=== PATIENT | male | born 1975 | race Caucasian/White ===

== ENCOUNTER 2023-10-05 22:39 | Observation (INO) | payer OTHER, SELFPAY ==
--- NOTE | ~2023-10-05 | XR_ITS ---
EXAMINATION: XR chest 1V portable DATE: 10/05/2023 23:59 INDICATION: Cough. TECHNIQUE: A single frontal view of the chest was obtained. COMPARISON: None. FINDINGS: There are airspace and interstitial opacities in the lower lung zones. No pleural effusion or pneumothorax. The heart size is normal. IMPRESSION: 1. Airspace and interstitial opacities in the lower lung zones, consistent with atelectasis/scarring versus pneumonia. Reviewed, dictated and finalized at location E. AL OFFICER
[2023-10-05 22:43] VITALS: BP 152/99; PULSE 109; RESP 18; TEMP 36.5; O2SAT 99
[2023-10-05 23:25] LABS: Basophils Absolute Auto 0.1 K/mm3 (0.0-0.1); Basophils Percent Auto 0.4 % (0.2-1.2); Eosinophils Absolute Auto 0.4 K/mm3 (0-0.3); Eosinophils Percent Auto 2.2 % (0-4.4); Hematocrit 43.7 % (42.0-52.0); Hemoglobin 16.1 g/dL (14.0-18.0); Immature Granulocyte Absolute 0.05 K/mm3 (0.00-0.031); Immature Granulocyte Percent A 0.3 % (0-0.5); Lymphocytes Absolute Auto 4.14 K/mm3 (0.9-3.2); Lymphocytes Percent Auto 25.8 % (18.3-44.2); Mean Corpuscular HGB Conc 36.8 g/dl (32-36); Mean Corpuscular Hemoglobin 32.3 pg (26-34); Mean Corpuscular Volume 87.8 fl (80-100); Mean Platelet Volume 11.2 fl (7.4-10.4); Monocytes Absolute Auto 1.2 K/mm3 (0.1-0.6); Monocytes Percent Auto 7.5 % (2.6-8.5); Neutrophils Absolute Auto 10.3 K/mm3 (1.3-6.7); Neutrophils Percent Auto 63.8 % (45.5-73.1); Platelet Count Result 243 k/mm3 (150-375); Red Blood Count 4.98 M/mm3 (4.6-6.20); Red Cell Distribution Width 12.4 % (11.5-14.5); White Blood Count 16.1 K/mm3 (4.5-10.0)
[2023-10-05 23:27] LABS: Glucose Point of Care > 500 mg/dl (65-105)
[2023-10-05 23:34] VITALS: PULSE 95; RESP 24; O2SAT 97
[2023-10-05 23:35] VITALS: BP 148/83; PULSE 98; RESP 22; O2SAT 97
--- NOTE | 2023-10-05 23:37 | ECG_ITS ---
Measurements Intervals [place] Rate: 93 P: 62 NJ: 175 QRS: 64 QRSD: 98 T: 47 QT: 352 QTc: 438 Interpretive Statements SINUS RHYTHM BASELINE ARTIFACT- I, V2, V4 NORMAL ECG NO PREVIOUS ECG AVAILABLE FOR COMPARISON Electronically Signed On 10-06-2023 7:02:12 SUPERVISORY FORESTER by Aaron Holland D.O.
[2023-10-05 23:38] LABS: Beta-Hydroxybutyrate/Acetoacetate 0.12 mmol/L (0.02-0.27)
[2023-10-05 23:45] VITALS: PULSE 96; RESP 20
[2023-10-05 23:45] LABS: Alanine Aminotransferase 34 U/L (6-50); Albumin Level 4.2 g/dL (3.5-5.1); Alkaline Phosphatase 201 U/L (38-126); Anion Gap 14 mmol/L (8-16); Aspartate Amino Transferase 30 U/L (17-59); Bilirubin,Total 0.7 mg/dL (0.2-1.3); Blood Urea Nitrogen 18 mg/dL (9-20); Carbon Dioxide 22 mmol/L (22-30); Chloride 94 mmol/L (98-107); Estimated CRCL calculation 91 ml/min; Estimated Glomerular Filt Rate > 60; Glucose 600 mg/dL (65-110); Magnesium 1.9 mg/dL (1.6-2.3); Phosphorus 2.8 mg/dL (2.5-4.5); Potassium 3.6 mmol/L (3.4-5.0); Sodium 130 mmol/L (137-145)
[2023-10-05] MEDS: SODIUM CHLORIDE 0.9% IV 1,000 ML 999 ML IV CONT ×2 (23:52)
[2023-10-06] VITALS (13 sets, daily range): BP systolic 141–158; BP diastolic 78–99; PULSE 77–99; RESP 14–23; TEMP 36.1–36.9; O2SAT 97–99; BMI 29.7
[2023-10-06 00:01] LABS: Appearance Urine Clear (Clear); Bilirubin Urine Negative (Negative); Blood Urine Negative (Negative); Color Urine Yellow (Yellow); Glucose Urine UA 3+ mg/dL (Negative); Ketones Urine Negative (Negative); Leukocyte Esterase Ur Negative LEU/UL (Negative); Nitrate Urine Negative (Negative); Protein Urine Negative (Negative); Specific Grav Ur 1.031 (1.001-1.035)
[2023-10-06 00:08] LABS: Lipase 352 U/L (23-300)
[2023-10-06 00:09] LABS: Lactic Acid Reflex 1.8 mmol/L (0.7-2.0)
[2023-10-06 00:11] LABS: Add Urine Microscopic? NO
[2023-10-06 00:21] LABS: Fractional Inspired Oxygen 21 %; HCO3 VBG 22.7 mEq/l (24.0-30.0); PO2 VBG 88.8 mmHg (35.0-45.0)
[2023-10-06 00:26] LABS: pH VBG 7.574 (7.300-7.400)
[2023-10-06 00:27] LABS: PCO2 VBG 25.1 mmHg (42.0-48.0)
[2023-10-06 00:29] LABS: Device ROOM AIR
[2023-10-06] MEDS: SODIUM CHLORIDE 0.9% IV 1,000 ML 999 ML IV CONT (00:48)
--- NOTE | 2023-10-06 00:48 | ED.GENADULT ---
HPI - General Adult General Chief complaint: Recheck/Abnormal Lab/Rx Stated complaint: pretty sure im in DKA Time Seen by Provider: 10/05/23 23:35 History of Present Illness HPI narrative: Patient 48-year-old gentleman who presents emergency department with chief complaint of hyperglycemia. Patient reports he has history of type 2 diabetes and currently is just on metformin as he has had issues with insurance and medications. The patient states that he has noticed that he has had increased urination and increased thirst patient states he has had some episodes of blurry vision and reports that he had outpatient labs that showed him to have a hemoglobin A1c of 12 and a blood sugar of 600. Patient reports he is concerned that he may be going into DKA Related Data Allergies Allergy/AdvReac Type Severity Reaction Status Date / Time No Known Allergies Allergy Verified 10/05/23 22:40 Review of Systems Review of Systems: A 10 system review of systems was completed on the patient and is negative except for what is stated in the HPI. Nursing and ancillary documentation was reviewed. Exam Narrative: GENERAL: Well-appearing, well-nourished, and in no acute distress. HEAD: Normocephalic, atraumatic. EYES: PERRLA and EOMI. ENT: Nares clear, no rhinorrhea or epistaxis. Mucous membranes moist. NECK: Supple. CHEST: Clear to auscultation. No respiratory distress. HEART: Regular rate and rhythm. No murmur heard. Normal peripheral pulses. ABDOMEN: Soft, nontender, nondistended, normal active bowel sounds. EXTREMITIES: Normal range of motion. No edema. SKIN: Warm, dry, no rash. NEURO: No focal deficits. Alert and oriented x3. PSYCH: Normal mood and affect. Course Vital Signs Vital signs: Vital Signs Temperature 36.5 C 10/05/23 22:43 Pulse Rate 109 H 10/05/23 22:43 Respiratory Rate 18 10/05/23 22:43 Blood Pressure 152/99 H 10/05/23 22:43 Pulse Oximetry 99 10/05/23 22:43 Oxygen Delivery Room Air 10/05/23 22:43 Temperature 36.5 C 10/05/23 22:43 Pulse Rate 96 10/06/23 00:11 Respiratory Rate 23 H 10/06/23 00:11 Blood Pressure 148/83 H 10/05/23 23:35 Pulse Oximetry 97 10/06/23 00:11 Oxygen Delivery Room Air 10/05/23 22:43 Medical Decision Making [facility] Narrative Medical decision making narrative: Differential diagnosis includes HHS, hyperglycemia, noncompliance, Laboratory studies were obtained and the patient showed a white blood cell count of 16.1 hemoglobin 16.9 electrolytes showed a sodium 130 potassium 3.6 BUN was 18 creatinine 0.9 glucose was 600 lactic acid was 1.8 magnesium 1.9 phosphorus is 2.8 liver enzymes are within normal limits lipase was 352 beta-hydroxybutyrate was 0.12 urinalysis showed 3+ glucose but no ketones. Chest x-ray showed no focal infiltrate. Vital Signs Vital Signs: Vital Signs Temperature 36.5 C 10/05/23 22:43 Pulse Rate 109 H 10/05/23 22:43 Respiratory Rate 18 10/05/23 22:43 Blood Pressure 152/99 H 10/05/23 22:43 Pulse Oximetry 99 10/05/23 22:43 Oxygen Delivery Room Air 10/05/23 22:43 Temperature 36.5 C 10/05/23 22:43 Pulse Rate 96 10/06/23 00:11 Respiratory Rate 23 H 10/06/23 00:11 Blood Pressure 148/83 H 10/05/23 23:35 Pulse Oximetry 97 10/06/23 00:11 Oxygen Delivery Room Air 10/05/23 22:43 Lab Data 10/05/23 23:14 10/05/23 23:14 Labs: Lab Results 10/05/23 10/05/23 10/05/23 Range/Units 23:14 23:24 23:34 WBC 16.1 H (4.5-10.0) K/mm3 RBC 4.98 (4.6-6.20) M/mm3 Hgb 16.1 (14.0-18.0) g/dL Hct 43.7 (42.0-52.0) % MCV 87.8 (80-100) fl MCH 32.3 (26-34) pg MCHC 36.8 H (32-36) g/dl RDW 12.4 (11.5-14.5) % Plt Count 243 (150-375) k/mm3 MPV 11.2 H (7.4-10.4) fl Immature Gran % (Auto) 0.3 (0-0.5) % Neut % (Auto) 63.8 (45.5-73.1) % Lymph % (Auto) 25.8 (18.3-44.2) % [place] % (Auto) 7.5 (2.6-8.5) % Eos %
[2023-10-06 00:55] LABS: Glucose Point of Care 458 mg/dl (65-105)
[2023-10-06 01:03] LABS: Base Excess ABG -1.3 mEq/l (+/-2.0); Fractional Inspired Oxygen 21 %; HCO3 ABG 21.8 mEq/l (22.0-26.0); Oxygen Content ABG 17.9 %vol (16.0-22.0); Oxygen Saturation ABG 95.1 % (95.0-100.0); PCO2 ABG 32.3 mmHg (35.0-45.0); PO2 ABG 71.1 mmHg (80.0-100.0); PO2 FiO2 Ratio Arterial Blood 3.39 %; pH ABG 7.447 (7.350-7.450)
[2023-10-06 01:05] LABS: Oxyhemoglobin 84.9 % THb (90.0-100.0); Site Drawn LEFT RADIAL
[2023-10-06 01:06] LABS: Device ROOM AIR; Modified Allen's Test Pass
[2023-10-06] MEDS: INSULIN HUMAN REGULAR (*BKC) 100 UNITS/ML 9 UNITS IV PUSH (01:20)
[2023-10-06] MEDS: INSULIN GLARGINE (*BKC) 100 UNITS/ML 15 UNITS SUB-Q (03:15)
--- NOTE | 2023-10-06 03:34 | ADMGEN ---
This patient, Hima Mark, was admitted to 3 [facility] Surg Room 312-01. Patient/family oriented to hospital policies and general routines including ID bracelet, bed and alarms, visiting hours, pain management, procedures, bathroom and other care routines, personal items, smoking policy, room service/diet, and visiting hours. Information on how to activate the Rapid Response Team has been discussed. Patient/Family are encouraged to report perceived risks to care and to ask questions if they do not understand what they are told or what they should do.
[2023-10-06 03:43] LABS: Glucose Point of Care 237 mg/dl (65-105)
[2023-10-06] MEDS: SODIUM CHLORIDE 0.9% IV 1,000 ML 150 ML IV CONT ×2 (04:05→11:36)
[2023-10-06] MEDS: ACETAMINOPHEN 325 MG TABLET 650 MG PO ×2 (04:24→08:54)
--- NOTE | 2023-10-06 06:43 | PHAR ---
HOME MED NICOTINE POUCH 8MG USE PRN FOR SMOKING CESSATION VERIFIED
[2023-10-06 07:25] LABS: Glucose Point of Care 310 mg/dl (65-105)
[2023-10-06] MEDS: metFORMIN HCL 500 MG TABLET 1000 MG PO ×2 (08:53→17:24)
[2023-10-06] MEDS: INSULIN ASPART (*BKC) 100 UNITS/ML SUB-Q ×4 (08:55→22:02)
--- NOTE | 2023-10-06 10:47 | PM.IMHP ---
H&P: HPI History of Present Illness Date/Time: 10/06/23 10:47 Chief Complaint: High Glucose Narrative: This 48 year old male pt with significant PMH of DM2, HLD, HTN, Anxiety, arthritis and Nicotine abuse presented to the ER overnight with complaints of, I think I'm in DKA. Pt is a patient of Dr. Kranthi Gibbs in [facility] and he has always managed him for his DM and chronic conditions. Pt. currently states he has stopped taking his medications for HTN, and HLD because he is able to control them with diet and exercise and don't need them. 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 He then tells me also that he has had issues obtaining his medications at times due to insurance not paying. He says the Farxiga is covered, but he just hasn't picked it up as of yet. He admits to only taking his Metformin regularly for the past week and a half to two weeks because he just now needs it. His recent labs that were drawn on 09/27/23 and visible to me in [facility]'s system show that his A1C is 12.0. In addition his Triglycerides are 694, and all of this is leading me to have a high suspicion of medication and medication regimen non-compliance. He was ruled out for DKA in the ER and was admitted for further management and evaluation. His Anion Gap was 14, no lactic acidosis and a normal pH. He was given IVF and insulin and admitted. Currently he has no complaints of pain or any dizziness, but does endorse polyuria and polydipsia over the course of the past month. He states that yesterday his vision was blurry and that is what prompted him to present to the ER. This blurry vision is now resolved. Review of Systems Review of Systems: All systems reviewed & are unremarkable except as noted in HPI and below PMFSH Past Medical History Medical History (Updated 10/06/23 @ 11:29 by TETE Wilder) Anxiety Arthritis Diabetes mellitus Dyslipidemia Hypertension Nicotine abuse Noncompliance Family History Family History Father Diabetes mellitus High cholesterol Mother Diabetes mellitus High cholesterol Grandparent Diabetes mellitus Cerebrovascular accident High cholesterol Social History Social History Smoking packs per day: 2 Smoking cigarettes per day: 40.0 Years smoked: 33 Smoking pack-years: 66.00 Smoking status: Current every day smoker Tobacco type: cigarettes Alcohol intake: former Substance use: never Lack of Transportation: No Lack of Food: Never True Current Housing: I Have Housing Concerned About Future Housing: No Difficulty Paying Gas/Electric Bills: No Difficulty Paying for Meds: YES Currently Unemployed: No Education: Associate Degree Difficulty w/ Childcare or Family Care: No Spiritual care concerns: No Meds Home Medications and Allergies Home Medications Medication Instructions Recorded Confirmed Type dapagliflozin propanediol 10 mg 10 mg PO DAILY 10/06/23 10/06/23 History tablet (Farxiga) metformin 1,000 mg tablet 1,000 mg PO BID 10/06/23 10/06/23 History Allergies Allergy/AdvReac Type Severity Reaction Status Date / Time No Known Allergies Allergy Verified 10/06/23 03:35 Vital Signs Vital Signs - 24 hr 10/05/23 22:43 10/05/23 23:34 10/05/23 23:35 Temperature 97.7 F Pulse Rate 109 H 95 98 Respiratory Rate 18 24 H 22 H Blood Pressure 152/99 H 148/83 H Pulse Oximetry 99 97 97 Oxygen Delivery Room Air 10/05/23 23:45 10/06/23 00:11 10/06/23 00:58 Temperature Pulse Rate 96 96 93 Respiratory Rate 20 23 H 21 H Blood Pressure Pulse Oximetry 97 98 Oxygen Delivery 10/06/23 01:00 10/06/23 01:57 10/06/23 02:00 Temperature Pulse Rate 95 78 89 Respiratory Rate 22 H 18 Blood Pressure Pulse Oximetry 97 98 98 Oxygen D
[2023-10-06 11:50] LABS: Glucose Point of Care 303 mg/dl (65-105)
[2023-10-06 16:32] LABS: Glucose Point of Care 320 mg/dl (65-105)
[2023-10-06 19:14] LABS: Glucose Point of Care 244 mg/dl (65-105)
[2023-10-06] MEDS: INSULIN GLARGINE (*BKC) 100 UNITS/ML 10 UNITS SUB-Q (22:03)
[2023-10-07 06:00] VITALS: BP 161/90; PULSE 64; RESP 12; TEMP 36.1; O2SAT 100
[2023-10-07 06:46] LABS: Basophils Absolute Auto 0.1 K/mm3 (0.0-0.1); Basophils Percent Auto 0.6 % (0.2-1.2); Eosinophils Absolute Auto 0.5 K/mm3 (0-0.3); Eosinophils Percent Auto 3.6 % (0-4.4); Hematocrit 41.5 % (42.0-52.0); Hemoglobin 14.9 g/dL (14.0-18.0); Immature Granulocyte Absolute 0.06 K/mm3 (0.00-0.031); Immature Granulocyte Percent A 0.5 % (0-0.5); Lymphocytes Absolute Auto 4.85 K/mm3 (0.9-3.2); Mean Corpuscular HGB Conc 35.9 g/dl (32-36); Mean Corpuscular Hemoglobin 31.6 pg (26-34); Mean Corpuscular Volume 87.9 fl (80-100); Mean Platelet Volume 10.7 fl (7.4-10.4); Monocytes Absolute Auto 1.2 K/mm3 (0.1-0.6); Monocytes Percent Auto 9.3 % (2.6-8.5); Neutrophils Absolute Auto 5.8 K/mm3 (1.3-6.7); Platelet Count Result 239 k/mm3 (150-375); Red Blood Count 4.72 M/mm3 (4.6-6.20); Red Cell Distribution Width 12.4 % (11.5-14.5); White Blood Count 12.4 K/mm3 (4.5-10.0)
[2023-10-07 06:59] LABS: Anion Gap 8 mmol/L (8-16); Blood Urea Nitrogen 11 mg/dL (9-20); Calcium 8.7 mg/dL (8.4-10.2); Carbon Dioxide 24 mmol/L (22-30); Chloride 106 mmol/L (98-107); Estimated CRCL calculation 91 ml/min; Estimated Glomerular Filt Rate > 60; Glucose 237 mg/dL (65-110); Potassium 3.4 mmol/L (3.4-5.0); Sodium 138 mmol/L (137-145)
[2023-10-07 08:10] LABS: Glucose Point of Care 252 mg/dl (65-105)
[2023-10-07] MEDS: INSULIN ASPART (*BKC) 100 UNITS/ML SUB-Q (09:31)
[2023-10-07] MEDS: ROSUVASTATIN 5 MG TABLET PO (09:32)
[2023-10-07] MEDS: OMEGA 3 POLYUNSAT FATTY ACIDS 1 GM CAP PO (09:32)
[2023-10-07] MEDS: metFORMIN HCL 500 MG TABLET 1000 MG PO (09:32)
[2023-10-07] MEDS: FENOFIBRATE 160 MG TABLET PO (09:32)
[2023-10-07] MEDS: lisinopriL 10 MG TABLET PO (09:32)
[2023-10-07] MEDS: POTASSIUM CHLORIDE 20 MEQ ER TABLET PO (09:37)
--- NOTE | 2023-10-07 10:26 | PM.DS ---
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: without termite control servicer use Diabetes mellitus type: type 2 Qualified Code(s): E11.9 - Type 2 diabetes mellitus without complications Code(s): E11.9 - Type 2 diabetes mellitus without complications Status: Acute (3) Dyslipidemia: Code(s): E78.5 - Hyperlipidemia, unspecified Status: Acute (4) Noncompliance: Code(s): Z91.199 - Patient's noncompliance with other medical treatment and regimen due to unspecified reason Status: Acute (5) Leukocytosis: Qualifiers: Leukocytosis type: unspecified Qualified Code(s): D72.829 - Elevated white blood cell count, unspecified Code(s): D72.829 - Elevated white blood cell count, unspecified Status: Acute (6) Nicotine abuse: Code(s): Z72.0 - Tobacco use Status: Chronic (7) Hypertension: Qualifiers: Hypertension type: unspecified Qualified Code(s): I10 - Essential (primary) hypertension Code(s): I10 - Essential (primary) hypertension Status: Chronic DS: Summary Hospital Course Reason for hospitalization: 48 year old male pt with significant PMH of DM2, HLD, HTN, Anxiety, arthritis and Nicotine abuse presented to the ER overnight with complaints of, I think I'm in DKA. Please see H&P for details. Hospital Course: Patient has had diabetes for 12 years. He has been on off medications including insulin. He had not been on any medications up until about 2 weeks ago. Was started on metformin. Farxiga was ordered but he has not started this medication yet. He presents to the emergency room because of blurry vision, polyuria and polydipsia. His EKG showed normal sinus rhythm otherwise normal. His blood pressure was mildly elevated and he was started on lisinopril. White count was 16 K but no evidence of infection. UA was clear except for 3+ glucose. Chest x-ray showed airspace and interstitial opacities in lower lung zones atelectasis versus scarring versus pneumonia. Patient denies any shortness of breath or cough and suspect this is more scarring/atelectasis than pneumonia. ABG 7.45/32/71 on room air. He remained on room air throughout his hospital course. Glucose was 600. Sodium is 130 related to the hyperglycemia. He had a normal anion gap. He was not acidotic. Beta hydroxybutyrate level was normal. Lipase slightly elevated 350. TSH was normal. He was treated with IV fluids and IV insulin. He was started on Lantus. Glucose trend down to 200s. Sodium level normalized. Patient's symptoms have resolved. Patient has given himself insulin in the past and is aware of how to do this. He has a meter at home with test strips. Plan for discharge home with the Lantus. Patient to continue the metformin. 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 Will arrange for outpatient dietitian and public health educator. Patient overall did well and was able be discharged home on 10/07/2023. Status at Discharge Cognitive/behavioral status at discharge: stable Time Spent with Patient Time attestation: Total time spent providing and/or coordinating discharge services: 35 minutes Time spent: Greater than 30 minutes Exam Narrative: AF 97.0 161/90 64 12 100% ra Gen - NARD Chest - CTA bilaterally, nml RR CV - RRR S1/S2 Abd - Soft, NT/ND, Positive BS Ext - No pedal edema Psych - Nml mood and affect Skin - Warm and dry DS: Data Data Completed and Pending Labs on day of discharge: Labs from last 24 hours 10/07/23 10/07/23 10/06/23 07:58 06:21 19:08 WBC 12.4 H RBC
[2023-10-07 11:38] VITALS: O2SAT 99
[2023-10-07 11:59] LABS: Glucose Point of Care 199 mg/dl (65-105)
[2023-10-08 11:43] LABS: Glucose Point of Care > 500 mg/dl (65-105)
== END 2023-10-07 12:50 | disposition home or self-care (01) ==
LOC: ANHED 10-06 01:46 → ANH3MEDSUR 10-06 03:20
PROVIDERS: Admitting Provider Internal Medicine; Emergency Provider Emergency Medicine; Visit Provider Nurse Practitioner Adult Health
DX: E11.65 Type 2 diabetes mellitus with hyperglycemia (principal); E78.5 Hyperlipidemia, unspecified; I10 Essential (primary) hypertension; F41.9 Anxiety disorder, unspecified; Z91.199 Patient's noncompliance with other medical treatment and regimen due to unspecified reason; D72.829 Elevated white blood cell count, unspecified; M19.90 Unspecified osteoarthritis, unspecified site; R91.8 Other nonspecific abnormal finding of lung field; F17.210 Nicotine dependence, cigarettes, uncomplicated; Z79.84 Long term (current) use of oral hypoglycemic drugs; Z83.3 Family history of diabetes mellitus; Z84.89 Family history of other specified conditions
CPT/HCPCS: 36415; 36600; 71045; 80048; 80053; 81003; 82010; 82803; 82805; 82948; 83605; 83690; 83735; 84100; 84443; 85025; 93005; 96361; 96374; 99285; A9270; G0378; J1815; J7030

== ENCOUNTER 2024-07-10 14:30 | Outpatient (CLI) | payer OTHER, SELFPAY ==
--- NOTE | ~2024-07-10 | MR_ITS ---
EXAMINATION: MR brain/brain stem wo con DATE: 07/10/2024 15:07 INDICATION: Syncope. Hypotension associated with diabetes. Headache and dizziness. TECHNIQUE: Magnetic resonance imaging (MRI) of the brain and brainstem was performed without intraven ous contrast. Sequences included sagittal and axial T1-weighted SE, axial diffusion-weighted FS SE, a xial 3D SWAN, axial T2-weighted FLAIR, and axial T2-weighted FSE. Apparent diffusion coefficient (ADC ) maps were created. COMPARISON: None. FINDINGS: There are no areas of restricted diffusion to suggest acute infarction. No intracranial hemorrhage or abnormal intracranial mass lesion. There are scattered areas of nonspecific increased T2-weighted si gnal intensity in the cerebral white matter, predominantly involving the deep and periventricular whi te matter. There are no intraparenchymal signal abnormalities seen on the other pulse sequences. The ventricles are symmetric and normal in size. There are no abnormal extra-axial fluid collections. See w voids are seen in the cerebral arteries on the T2-weighted sequences consistent with their expected patency. Moderate mucosal thickening the left maxillary sinus. Mild mucosal thickening the right max illary and bilateral ethmoid sinuses. Visualized orbits and soft tissues are unremarkable. IMPRESSION: 1. A few scattered nonspecific foci of white matter T2 hyperintensity likely related to chronic small vessel ischemic disease. No acute intracranial process. Reviewed, dictated and finalized at location A. IMPRESSION: 1. A few scattered nonspecific foci of white matter T2 hyperintensity likely re lated to chronic small vessel ischemic disease. No acute intracranial process.
== END 2024-07-10 14:31 ==
LOC: GOSHIMG 14:31
DX: E11.59 Type 2 diabetes mellitus with other circulatory complications (principal); I15.2 Hypertension secondary to endocrine disorders; R55 Syncope and collapse
CPT/HCPCS: 70551

== ENCOUNTER 2025-11-23 02:26 | Emergency (ER) | payer OTHER, SELFPAY ==
--- NOTE | ~2025-11-23 | CT_ITS ---
CT abdomen pelvis w con Clinical History: abd pain, n/v . Comparison: None Technique: Axial images lung bases to symphysis pubis 100 mL Omnipaque 350 Coronal, sagittal reformats CT images acquired with automatic exposure control for dose reduction DLP: 639 mGy-cm Findings: Lung bases: Emphysema. A few small nodules right base up to 7 mm Visualized heart and pericardium: Unremarkable. Liver: Enlarged. Steatosis. Gallbladder: Unremarkable. Spleen: Unremarkable. Pancreas: Unremarkable. Adrenal glands: Unremarkable. Kidneys: Right kidney- No hydronephrosis. A few small stones. Left kidney- No hydronephrosis. A few small stones. Distal esophagus/stomach: Unremarkable. Small bowel loops: Normal caliber and wall thickness. Colon: Diverticula. Normal caliber and wall thickness. Normal RLQ appendix. Nodes: No enlarged nodes. Peritoneum: No ascites. No free air. Urinary bladder: Mild wall thickening. Prostate: Unremarkable. Bones: No acute bony abnormality. Soft tissues: Unremarkable. Aorta: No aneurysm or dissection. Atherosclerotic disease. IVC: Unremarkable. Main portal vein/SMV/splenic vein: Patent. Findings and recommendations discussed with Dr. Alarcon in the ED at 10:40 AM EST on 11/23/2025. IMPRESSION: 1. No acute abnormality. 2. Findings as above. Including renal stones. 3. A few pulmonary nodules with background emphysema. Recommend repeat CT chest in 6-12 months. Reviewed, dictated and finalized at location R. 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 No acute abnormality. 2. Findings as above. Including renal stones. 3. A few pulmonary nodules with background emphysema. Recommend repeat CT ches t in 6-12 months.
[2025-11-23 02:27] VITALS: BP 191/109; PULSE 90; RESP 18; TEMP 36.4; O2SAT 99
--- OUTSIDE RECORDS SUMMARY | 2025-11-23 02:29 | XMS_ITS | Clinical Summary ---
Author Organization [facility] Address [address] [place] [address] Care Team Providers Care Instruction Librarian Name Role Phone Kranthi Gibbs MD Primary Care Provi berkley Source Comments [facility],non-owned Affiliates and Associated Physician Practices is amultiple site organization consisting of ambulatory clinics and hospital sitesin [place], [place], [place] and [place]. This disclosure is being madepursuant to the Care Everywhere program and may not contain all information available regarding this patient. Last updated 18.[facility] Allergies No known active allergies Medications * Be aware that medications may not be up to date on this document. Alwaysverify current medications with the patient. metFORMIN (Glucophage) 1000 MG tablet Take 1 (one) tablet by mouth 2 times daily with morning and evening meal 09/17/2024 Active Lantus SoloStar pen INJECT 20 UNITS UNDER THE SKIN DAILY Active Vraylar 3 MG capsule Take 1 (one) capsule by mouth once daily Active lisinopril (Prinivil; Zestril) 40 MG tablet Take 1 (one) tablet by mouth once daily Active HYDROcodone-rashawn taminophen (Aldrich) 10-325 MG tablet Take 1 (one) tablet by mouth every 6 hours as needed 02/09/2025 Active nebivolol (Bystolic) 5 MG tablet Take 1 (one) tablet by mouth once daily 02/20/2025 Active sertraline (Zoloft) 100 MG tablet Take 1 (one) tablet by mouth once daily Active rosuvastatin (Crestor) 5 MG tablet Take 1 (one) tablet by mouth once daily Active amLODIPine (Norvasc) 2.5 MG tablet Take 1 (one) tablet by mouth at bedtime 90 tablet 4 02/26/2025 Active Active Problems Problem Noted Date Diagnosed Date Chest pain 02/26/2025 Labile hypertension 02/26/2025 Dyslipidemia 02/26/2025 Class 1 obesity with body ma ss index (BMI) of 31.0 to 31.9 in adult 02/26/2025 Tobacco use disorder 02/26/2025 Family History Medical History Relation Name Comments CAD (Coronary Artery Disease) Father Cancer Father Cancer Mother Relation Name Status Comments Father Mother Social History Tobacco Use Types Packs/Day Years Used Date Smoking Tobacco: Every Day Cigarettes Tobacco Cessation:Ready to Q uit: Not Asked; Counseling Given: Not Answered Sex and Gender Information Value Date Recorded Sex Assigned at Not on file Legal Sex Male 9:21 AM CDT Gender Identity Not on file Sexual Orientation Not on file Last Filed Vital Signs Vital Sign Reading Time Taken Comments Blood Pressure 154/92 02/26/2025 1:00 PM CDT Pulse 64 02/26/2025 1:00 PM CDT Temperature 36.7 C (98 F) 02/23/2025 9:25 AM CDT Respiratory Rate 20 02/26/2025 1:00 PM CDT Oxygen Saturation 95% 02/26/2025 1:00 PM CDT Inhaled Oxygen Concentration - - Weight 99.5 kg (219 lb 6.4 oz) 02/26/2025 1:00 P M CDT Height 177.8 cm (5' 10) 02/26/2025 1:00 PM CDT Body Mass Index 31.48 02/26/2025 1:00 PM CDT Plan of Treatment Health Maintenance Due Date Last Done Comments COLOGUARD (AGES 45-75) - COL ON CA SCREENING 1975 COLON MONITORING 1975 COLONOSCOPY - COLON CA SCREENING 1975 CT COLONOGRAPHY - COLON CA SCREENING 1975 Colorectal Cancer Screening 1975 FIT - COLON CA SCREENING 1975 FLEX SIG - COLON CA SCREENING 1975 HIV SCREENING 1990 HEPATITIS C SCREENING 08/09/1993 DTAP/TDAP/TD VACCINES (1 - Tdap) 1994 HEPATITIS B VACCINE (1 of 3 - 19+ 3-dose series) 1994 PNEUMOCOCCAL VACCINE 50+ (1 of 2 - PCV) 1994 DEPRESSION SCREENING 11/26/2024 COVID-19 VACCINE (1 - 2024-2 6 season) 2025 INFLUENZA VACCINE (#1) 2025 ZOSTER VACCINE (1 of 2) 2025 SCREENING FOR DIABETES 02/24/2028 02/23/2025 HIB VACCINE Aged Out No longer eligi ble based on patient's age to complete this topic HPV VACCINE Aged Out No longer eligi ble based on patient's age to complete this topic MENINGOCOCCAL (Group B) VACC INE SHARED DECISION-MAKING Aged Out No longer eligibl e based on patient's age to complete this topic MENINGOCOCCAL GROUPS A/C/Y/W VACCINE Aged Out No longer eligible b ased on patient's age to complete this topic Procedures Procedure Name Priority Date/Time Associated Diagnosis Comments COMPREHENSIVE METABOLIC PANEL STAT 02/23/2025 9:59 AM CDT from Last 3 Months or Most Recently Relevant to Health Maintenance Results * (ABNORMAL) COMPREHENSIVE METABOLIC PANEL (02/23/2025 9:59 AM CDT) Glucose 147(H) 70 - 99 mg/dL 02/23/2025 10:[address] [facility] Sodium 138 136 - 145 mmol/L 02/23/2025 10:[address] [facility] Potassium 3.9 3.5 - 5.1 mmol/L 02/23/2025 10:[address] [facility] Chloride 107 98 - 107 mmol/L 02/23/2025 10:[address] [facility] CO2 23 22 - 29 mmol/L 02/23/2025 10:[address] [facility] Calcium 9.0 8.4 - 10.4 mg/dL 02/23/2025 10:[address] [facility] Anion Gap 8 6 - 16 mmol/L 02/23/2025 10:[address] [facility] BUN 6 5.3 - 18.7 mg/dL 02/23/2025 10:[address] [facility] Creatinine 1.01 0.72 - 1.25 mg/dL 02/23/2025 10:[address] [facility] Alkaline Phosphatase 94 40 - 150 U/L 02/23/2025 10:[address] [facility] ALT 19 6 - 57 U/L 02/23/2025 10:[address] [facility] AST 22 10 - 48 U/L 02/23/2025 10:[address] [facility] Protein Total 7.9 6.4 - 8.3 gm/dL 02/23/2025 10:[address] [facility] Albumin 3.7 3.4 - 5.0 gm/dL 02/23/2025 10:[address] [facility] Bilirubin Total 0.3 0.2 - 1.2 mg/dL 02/23/2025 10:[address] [facility] eGFR by CKD-EPI >90 >=90 mL/min/1.7 3 m2 02/23/2025 10:[address] [facility] Blood BLOOD SPECIMEN / Unknown Venipuncture / Unknown 02/23/2025 9:59 AM CDT 02/23/2025 10:03 AM CDT us Hilaria DON LAB - CHEMISTRY ORDERABLES Fi nal Result [facility] [address] [place] [address] from Last 3 Months or Most Recently Relevant to Health Maintenance Care Teams Instruction Librarian Relationship Specialty Start Date End Date Kranthi Gibbs MD [address] [place] [address] PCP - General Family Medicine 02/23/25
--- OUTSIDE RECORDS SUMMARY | 2025-11-23 02:29 | XMS_ITS | Encounter Summary ---
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 Historical Provider Final Res ult documented in this encounter Visit Diagnoses Not on filedocumented in this encounter Care Teams Staff Electrical Engineer Relationship Specialty Start Date End Date Kranthi Gibbs MD [address] [address] PCP - General 04/19/17 09/10/22 Aurelia Santiago NP [address] [address] PCP - General Family Medicine 09/11/22 documented as of this encounter
--- OUTSIDE RECORDS SUMMARY | 2025-11-23 02:29 | XMS_ITS | Encounter Summary ---
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 Historical Provider [facility] Final Result documented in this encounter Visit Diagnoses Not on filedocumented in this encounter Care Teams Chip Loft Worker Relationship Specialty Start Date End Date Kranthi Gibbs MD [address] [address] PCP - General 04/19/17 09/10/22 Aurelia Santiago NP [address] [address] PCP - General Family Medicine 09/11/22 documented as of this encounter
--- OUTSIDE RECORDS SUMMARY | 2025-11-23 02:29 | XMS_ITS | Encounter Summary ---
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 Historical Provider [facility] Final Result documented in this encounter Visit Diagnoses Not on filedocumented in this encounter Care Teams Clerk Checker Relationship Specialty Start Date End Date Kranthi Gibbs MD [address] [address] PCP - General 04/19/17 09/10/22 Aurelia Santiago NP [address] [address] PCP - General Family Medicine 09/11/22 documented as of this encounter
--- OUTSIDE RECORDS SUMMARY | 2025-11-23 02:29 | XMS_ITS | Clinical Summary ---
Author Organization [facility] Address [address] [place] [address] Care Team Providers Care Player Development Executive Name Role Phone Aurelia Santiago NP Primary Care Provider [phone] Allergies No known active allergies Medications blood-glucose meter (ONETOUCH VERIO SYSTEM) misc Test blood sugars once a day as directed. Dx: E11.9 1 each 9 Active lancets 33 gauge misc Patient test three times a day 100 each 3 0 Active blood glucose diagnostic (glucose blood) strip Check blood sugars once daily and prn 100 each 3 2 Active BD Ultra-Fine Mini Pen Needle 31 gauge x 3/16 needleIndications: Type 2 diabetes mellitus with hyperglycemia, with long-term current use of insulin ([facility]) Use to inject insulin SubQ once daily 90 each 3 2 Active blood-glucose meter kitIndications:Typ e 2 diabetes mellitus with hyperglycemia, without long-term current use of insulin (HCC) Test 3 times daily and as needed 1 kit 3 Active naproxen sodium 220 mg capsule Take 220 mg by mouth every 12 (twelve) hours Active ibuprofen 200 mg tab/cap Take by mouth every 6 (six) hours as needed for pain Active UNABLE TO FIND OTC sleep aid Active lisinopriL (PRINIVIL,ZESTRIL) 40 mg tabletIndications: Essential hypertension TAKE 1 TABLET BY MOUTH EVERY DAY 90 tablet 3 4 Active metFORMIN (GLUCOPHAGE) 1,000 mg tabletIndications: Type 2 diabetes mellitus with hyperglycemia, with long-term current use of insulin (HCC) TAKE 1 TABLET BY MOUTH TWICE A DAY WITH MEALS 180 tablet 3 4 Active sertraline (ZOLOFT) 100 mg tablet TAKE 1 TABLET BY MOUTH EVERY DAY 90 tablet 3 4 Active empagliflozin (JARDIANCE) 25 mg tabletIndications: Type 2 diabetes mellitus with hyperglycemia, with long-term current use of insulin (HCC) Take 1 tablet (25 mg total) by mouth daily 90 tablet 3 5 Active nebivoloL (BYSTOLIC) 5 mg tabletIndications: Essential hypertension Take 1 tablet (5 mg total) by mouth daily 90 tablet 3 5 Active insulin glargine (LANTUS) 100 unit/mL (3 mL) pen for injection INJECT 20 UNITS UNDER THE SKIN DAILY 3 mL 11 5 Active ARIPiprazole (ABILIFY) 5 mg tablet Take 1 tablet (5 mg total) by mouth daily 90 tablet 3 5 Active rosuvastatin (CRESTOR) 5 mg tabletIndications: Mixed hyperlipidemia TAKE 1 TABLET BY MOUTH EVERY DAY 90 tablet 1 5 Active HYDROcodone-acetam inophen (NORCO) 10-325 mg per tabletIndications: Pain Take 1 tablet by mouth every 6 (six) hours as needed for pain 120 tablet 5 Active HYDROcodone-acetam inophen (NORCO) 10-325 mg per tabletIndications: Pain Take 1 tablet by mouth every 6 (six) hours as needed for pain 120 tablet 5 10/29/20 25 Discontin ued(Reord er) Active Problems Problem Noted Date Diagnosed Date Hypertension associated with diabetes 02/25/2019 Assessment & Plan (07/28/2021 8:45 AM CDT): This is a chronic condition which is at goal Personally reviewed labs. B/P today- 134/80 currently on losartan, hydrochlorothiazide. Goal blood pressure is <140/90 and as close to 120/80 as possible. Avoid caffeine, caffeine will raise blood pressure and excessive alcohol consumption. Monitor your weight and B/P. Encouraged to take medications as prescribed. Assessment & Plan (07/15/2021 9:19 AM CDT): This is a chronic condition which is at goal Personally reviewed labs. B/P today- 118/70 , currently on losartan hydrochlorothiazide. Goal blood pressure is <140/90 and as close to 120/80 as possible. Avoid caffeine, caffeine will raise blood pressure and excessive alcohol consumption. Monitor your weight and B/P. Encouraged to take medications as prescribed. Assessment & Plan (07/06/2021 4:47 PM CDT): This is a chronic condition which is at goal Goal is <140/90 Personally reviewed labs. B/P today- 120/62 , currently on losartan hydrochlorothiazide. Avoid caffeine, caffeine will raise blood pressure and excessive alcohol consumption. Monitor your weight and B/P. Encouraged to take medications as prescribed. Type 2 diabetes mellitus wit h hyperglycemia, with long-term current use of insulin 02/25/2019 Assessment & Plan (07/28/2021 8:42 AM CDT): This is a chronic condition which is improving, but not at goal. Personally reviewed A1c today- 9.1 not at goal less than 7% Personally reviewed blood sugar 383, not at goal 80-180 States drank grape juice prior to visit. Medication- Continue Invokana 300 mg p.o. daily, Rybelsus 7 mg daily, Lantus to 25 units daily. (Weight based 0.5 units/kg) add Humalog 6 units prior to meals. Hold if blood sugar is less than 100. Continue Monitoring blood sugar with Dexcom 6- will need this for insulin dose titrations. Encouraged annual eye exam. dilated eye exam is needed Monofilament foot exam completed, protective senses intact, Urine microalbumin-1.8 - Currently on losartan/hydrochlorothiazide , normal and at goal <30 Personally reviewed labs: BUN-11, creatinine- 1.07 GFR- 83 Kidney function- normal B/P today- 134/80, currently on losartan hydrochlorothiazide. At Goal blood pressure is <140/90 and as close to 120/80 as possible. Personally reviewed LDL -132, currently on atorvastatin 40 mg daily. Not at Goal of less than 70. Will re-evaluate as blood sugar improves No history of macrovascular disease - CVA, CT. DexCom 6 continuous glucose monitor applied from 07/15/2021 to This device was placed for monitor and treatment of blood sugar. Average blood sugar- 170 Variability- 25.2% ( goal < 36%) Data Analysis Very High >250 mg/dl- 5.9 % High 181-250 mg/dl 32.1 % Target 70-180 mg/dl 67.9 % Low 54-69 mg/dl 0 % Very Low <50 mg/dl 0 % Interpretation of data- Post pranial elevation, especially after breakfast. Drinking juice. Overall, great improvement with the addition of basal/bolus insulin. Assessment & Plan (07/15/2021 9:24 AM CDT): This is a chronic condition which is improving, but not at goal. Personally reviewed A1c today- 9.1 not at goal less than 7% Personally reviewed blood sugar 259 at goal 80-180 Medication- Continue Invokana 300 mg p.o. daily, Rybelsus 7 mg daily, Lantus to 25 units daily. (Weight based 0.5 units/kg) add Humalog 6 units prior to meals. Hold if blood sugar is less than 100. Continue Monitoring blood sugar 4 times a day. Adding Dexcom 6- will need this for insulin dose titrations. Call blood sugars on Sunday. Encouraged annual eye exam. dilated eye exam is needed Monofilament foot exam completed, protective senses intact, Urine microalbumin-1.8 - Currently on losartan/hydrochlorothiazide , normal and at goal <30 Personally reviewed labs: BUN-11, creatinine- 1.07 GFR- 83 Kidney function- normal B/P today- 118/70 , currently on losartan hydrochlorothiazide. At Goal blood pressure is <140/90 and as close to 120/80 as possible. Personally reviewed LDL -132, currently on atorvastatin 40 mg daily. Not at Goal of less than 70. Will re-evaluate as blood sugar improves No history of macrovascular disease - CVA, CT. Will add Dexcom 6 for continuous glucose monitoring. Assessment & Plan (07/06/2021 4:53 PM CDT): This is a chronic condition which is improving, but not at goal. Personally reviewed A1c today- 9.1 not at goal less than 7% Personally reviewed blood sugar 174 at goal 80-180 Medication- Continue Invokana 300 mg p.o. daily, Rybelsus 7 mg daily, increase Lantus to 25 units daily. (Weight based 0.5 units/kg) Continue Monitoring blood sugar 3 times a day. Encouraged annual eye exam. dilated eye exam is needed Monofilament foot exam completed, protective senses intact, Urine microalbumin-1.8 - Currently on losartan/hydrochlorothiazide , normal and at goal <30 Personally reviewed labs: BUN-11, creatinine- 1.07 GFR- 83 Kidney function- normal B/P today- 120/62 , currently on losartan hydrochlorothiazide. At Goal blood pressure is <140/90 and as close to 120/80 as possible. Personally reviewed LDL -132, currently on atorvastatin 40 mg daily. Not at Goal of less than 70. Will re-evaluate as blood sugar improves No history of macrovascular disease - CVA, CT. Other obesity due to excess calories 11/04/2018 Chronic pain due to trauma 07/11/2018 Cigarette nicotine dependence without complicati on 07/11/2018 Assessment & Plan (07/06/2021 4:40 PM CDT): This is a chronic condition which is unchanged Reports he start smoking at age 13 Has decreased to 1 and half packs per day Encouraged to stop Mixed hyperlipidemia 07/11/2018 Assessment & Plan (07/06/2021 4:49 PM CDT): This is a chronic condition which is not at goal. Goal is less than 70. Personally reviewed lipid panel. Personally reviewed LDL -132, currently on atorvastatin 40 mg daily. Will re-evaluate as blood sugar improves Encouraged to eat healthy, include fresh fruits and vegetables daily and avoid eating fried foods more than once per week. Encouraged to take medications as prescribed. 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 ([facility]) 02/25/2019 07/06/2021 Body mass index (BMI) of 31.0-31.9 in adult 11/04/2018 07/09/2020 Bilateral carpal tunnel syndrome 07/11/2018 07/09/2020 Type 2 diabetes mellitus 07/11/2018 Arthritis 03/13/2017 07/09/2020 Precordial chest pain 03/13/20172019 Uncontrolled diabetes mellitus 11/09/2016 07/09/2020 Orthostatic hypotension 08/10/201606/26 Tobacco abuse 08/10/2016 07/09/2020 Tobacco abuse counseling 08/10/2016 Falling episodes 06/29/2016 07/09/2020 Essential (primary) hypertension 06/29/2016 07/09/2020 DM (diabetes mellitus) 06/29/201607/09 Blood in stool 06/15/2016 07/09/2020 Dizziness 06/15/2016 07/09/2020 Immunizations Immunization Administration Dates Next Due Influenza, Unspecified 03/11/2024(Deferr ed: Patient Refused),01/27/2024(Deferred: Patient Refused),01/25/2024(Deferred: Patient Refused),02/01/2023(Deferred: Patient Refused),01/26/2023(Deferred: Patient Refused),01/24/2023(Deferred: Patient Refused) Pneumococcal Conjugate PCV 13 09/22/2015 Pneumococcal Conjugate Pcv20 03/11/2024 Tdap 07/11/2013 Surgical History Surgery Date Site/Laterality Comments BRAIN SURGERY WRIST SURGERY KNEE SURGERY Medical History Medical History Date Comments Diabetes mellitus Hypertension Hyperlipidemia Arthritis Depression Chronic low back pain Family History Medical History Relation Name Comments No Known Problems Daughter Cancer Father Hypertension Father Diabetes Maternal Grandfather Diabetes Maternal Grandmother Hypertension Maternal Grandmother Cancer Mother Hypertension Mother Diabetes Paternal Grandfather Diabetes Paternal Grandmother No Known Problems Son Relation Name Status Comments Daughter Alive Father Maternal Grandfather Maternal Grandmother Mother Paternal Grandfather Paternal Grandmother Son Alive Social History Tobacco Use Types Packs/Day Years Used Date Smoking Tobacco: Every Day Cigarettes 1 32 Started: 11/26/1993 Passive Smoke Exposure: Current Smokeless Tobacco: Never Tobacco Cessation:Ready to Q uit: Not Asked; Counseling Given: Not Answered Alcohol Use Standard Drinks/Week Comments Not Currently 0 (1 standard drink = 0.6 oz pur e alcohol) rarely- not even monthly AUDIT-C Answer Date Recorded Frequency of Alcohol Consumption Monthly or less 02/25/2019 Average Number of Drinks 3 or 4 019 Frequency of Binge Drinking Less than monthly PHQ-2 Answer Date Recorded PHQ-2 Total Score (If total score is 3 or more points, staff should administer the PHQ-9) 0 02/20/2025 Personal Safety Answer Date Recorded Have you ever been in or are you currently in a harmful physical or emotional relationship or is someone making you feel afraid or unsafe? 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 [employer] Gender Identity Not on file Sexual Orientation Not on file Last Filed Vital Signs Vital Sign Reading Time Taken Comments Blood Pressure 170/100 02/20/2025 9:01 AM CDT Pulse 96 02/20/2025 9:01 AM CDT Temperature 36.7 C (98 F) 07/02/2024 5:35 PM CDT Respiratory Rate 20 02/20/2025 9:01 AM CDT Oxygen Saturation 96% 02/20/2025 9:01 AM CDT Inhaled Oxygen Concentration - - Weight 98.9 kg (218 lb) 02/20/2025 9:01 AM CDT Height 177.8 cm (5' 10) 02/20/2025 9:01 AM CDT Body Mass Index 31.28 02/20/2025 9:01 AM CDT Plan of Treatment Health Maintenance Due Date Last Done Comments Colon Cancer Screening-Colonoscopy 1975 Dilated Eye Exam 1975 DTaP/Tdap/Td Vaccine (2 - Td or Tdap) 07/11/2023 07/11/2013 Foot Exam 03/11/2025 03/11/2024, 041 04/2024, 07/28/2021, Additional history exists Regular Well Visit/Exam 18-64 03/11/2025, 03/11/2024, 04/17/2022, Additional history exists Influenza Vaccine (#1) 2025 Lung Cancer Screening 2025 Zoster Vaccine (1 of 2) 2025 Hemoglobin A1C 08/23/2025 02/20/2025, 08/0 07/2024, 03/10/2024, Additional history exists Albumin Creatinine Ratio, Urine 02/20/2026 02/20/2025, 03/10/2024, 04/11/2022 Depression Screening 02/20/2026 02/20/2025, 10/11/2023, 07/17/2022, Additional history exists Lipid Panel 02/20/2026 02/20/2025, 02/24, 10/03/2023, Additional history exists eGFR 02/20/2026 02/20/2025, 02/24, 10/03/2023, Additional history exists Prostate Cancer Screening-PSA 03/10/2026 03/10/2024, 04/11/2022 Pneumococcal vaccine <65 Completed 03/11/2024, 08/27 Hepatitis B Screening Discontinued Hepatitis C Screening Discontinued Procedures Procedure Name Priority Date/Time Associated Diagnosis Comments EGFR Routine 02/20/2025 9:35 AM CDT Essential hypertension Mixed hyperlipidemia HEMOGLOBIN A1C Routine 02/20/2025 9:35 AM CDT Type 2 diabetes mellitus with hyperglycemia, with long-term current use of insulin (HCC) LIPID PANEL Routine 02/20/2025 9:35 AM CDT Mixed hyperlipidemia ALBUMIN CREATININE RATIO, URINE Routine 02/20/2025 9:35 AM CDT Essential hypertension Type 2 diabetes mellitus with hyperglycemia, with long-term current use of insulin (HCC) PSA SCREEN Routine 03/10/2024 10:00 AM CDT Screening for prostate cancer from Last 3 Months or Most Recently Relevant to Health Maintenance Results * eGFR (02/20/2025 9:35 AM CDT) eGFR >90 >=60 mL/min/1. 73 m2 Comment: Interpretive Data Reference Interval Normal >/= 90 mL/min/1.73m2 Mildly decreased* 60 - 89 mL/min/1.73m2 Mildly to moderately decreased 45 - 59 mL/min/1.73m2 Moderately to severely decreased 30 - 44 mL/min/1.73m2 Severely decreased 15 - 29 mL/min/1.73m2 Kidney Failure < 15 mL/min/1.73m2 *Relative to young adult level Estimated glomerular filtration rate is determined by the 2020 CKD-EPI equation recommended by the National Kidney Foundation (A Unifying Approach to GFR Estimation: Recommendations of the NKF-ASK Task Force on Reassessing the Inclusion of Race in Diagnosing Kidney Disease, JASN 2020). The CKD-EPI equation should not be used for patients with unstable renal function and has not been validated in children and those over 70. Current interpretive data was last reviewed 2021. Blood 02/20/2025 9:35 AM CDT 02/20/2025 1:08 PM CDT Aurelia Santiago CREW LEAD LAB BLOOD ORDERABLES Final Result Performing Organization Address [facility] de Phone Number [address] [place] [employer] [address] * (ABNORMAL) Albumin Creatinine Ratio, Urine (02/20/2025 9:35 AM CDT) Pathologist [facility] Albumin Ur 112.0 mg/L Comment: Interpretive Data No reference range established. Current interpretive data was last revised 2019. Creatinine Ur 74.8 mg/dL [place] Comment: Interpretive Data No reference range established. Current interpretive data was last revised 2019. Albumin Creatinine Ratio, Ur 150(H) 1 - 29 mg/g [place] Urine 02/20/2025 9:35 AM CDT 02/20/2025 1:06 PM CDT Aurelia Santiago CREW LEAD LAB URINE ORDERABLES Final Result Performing Organization Address [facility] Co de Phone Number [address] [place] [employer] [place] [address] * (ABNORMAL) Hemoglobin A1c (02/20/2025 9:35 AM CDT) Pathologist [facility] Hgb A1C 7.5(H) 4.0 - 5.6 % Estimated Average Glucose 169 mg/dL [place] Comment: The ADA recommends reporting an estimated Average Glucose (eAG) with all Hemoglobin A1c results using the equation derived from a study of 507 normal and diabetic adults. Minority populations were underrepresented and children were not included. (Diabetes Care 31:5771-9567, 2008). The eAG is not equivalent to a fasting glucose. Blood 02/20/2025 9:35 AM CDT 02/20/2025 1:12 PM CDT Aurelia Santiago NP LAB BLOOD ORDERABLES Final Result [facility] [address] [facility] [place] [address] * (ABNORMAL) Lipid panel (02/20/2025 9:35 AM CDT) Cholesterol 147 30 - 199 mg/dL Comment: Interpretive Data Ages < or = 19 years Acceptable: <170 mg/dL Borderline high: 170-199 mg/dL High: >or= 200 mg/dL Ages > or = 20 years Desirable: <200 mg/dL Borderline high: 200-239 mg/dL High: >or= 240 mg/dL Literature References: 1. Expert Panel on Integrated Guidelines for Cardiovascular Health and Risk Reduction in Children and Adolescents. Pediatrics 2011;128:S213 2. NCEP Expert Panel. Circulation 2004;110:227 Current Interpretive Data was last revised on 2018. Triglycerides 241(H) <=149 mg/dL [facility] Comment: Interpretive Data Ages < or = 9 years Acceptable: <75 mg/dL Borderline high: 75-99 mg/dL High: >or= 100 mg/dL Ages 10 to 20 years Acceptable: <90 mg/dL Borderline high: 90-129 mg/dL High: >or= 130 mg/dL Ages > or = 20 years Desirable: <150 mg/dL Borderline high: 150-199 mg/dL High: 200-499 mg/dL Very high: >or= 499 mg/dL Literature References: 1. Expert Panel on Integrated Guidelines for Cardiovascular Health and Risk Reduction in Children and Adolescents. Pediatrics 2011;128:S213 2. NCEP Expert Panel. Circulation 2004;110:227 Current Interpretive Data was last revised on 2018. HDL 20(L) >=40 mg/dL [facility] Comment: Interpretive Data Ages < or = 19 years Acceptable: >45 mg/dL Borderline low: 40-45 mg/dL Low: <40 mg/dL Ages > or = 20 years Desirable: >or= 60 mg/dL Low: <40 mg/dL Literature References: 1. Expert Panel on Integrated Guidelines for Cardiovascular Health and Risk Reduction in Children and Adolescents. Pediatrics 2011;128:S213 2. NCEP Expert Panel. Circulation 2004;110:227 Current Interpretive Data was last revised on 2018. LDL, calculated 86 <=129 mg/dL [place] Comment: Interpretive Data Ages < or = 19 years Acceptable: <110 mg/dL Borderline high: 110-129 mg/dL High: >or= 130 mg/dL Ages > or = 20 years Optimal: <100 mg/dL Near optimal: 100-129 mg/dL Borderline high: 130-159 mg/dL High: >160 mg/dL Calculated using the Gregor LDL-C estimating equation. This equation was implemented on 2024. Prior to this date LDL-C was estimated using the Friedewald equation. Literature References: 1. Expert Panel on Integrated Guidelines for Cardiovascular Health and Risk Reduction in Children and Adolescents. Pediatrics 2011;128:S213 2. NCEP Expert Panel. Circulation 2004;110:227 3. Gregor Toledo et al. VANNA Cardiol. 2020 March 26;5(5):540-548. doi: [email or web address] Current Interpretive Data was last revised on 2024. Non-HDL Cholesterol 127 mg/dL [facility] Comment: Interpretive Data Ages < or = 19 years Acceptable: <120 mg/dL Borderline high: 120-144 mg/dL High: >145 mg/dL Ages > or = 20 years When triglycerides are >200 mg/dL, Non-HDL cholesterol is a secondary target of therapy with treatment goals that are 30 mg/dL greater than the LDL cholesterol target. Literature References: 1. Expert Panel on Integrated Guidelines for Cardiovascular Health and Risk Reduction in Children and Adolescents. Pediatrics 2011;128:S213 2. NCEP Expert Panel. Circulation 2004;110:227 Current Interpretive Data was last revised on 2018. Chol/HDL ratio 7 [place] Blood 02/20/2025 9:35 AM CDT 02/20/2025 1:08 PM CDT Aurelia Santiago CREW LEAD LAB BLOOD ORDERABLES Final Result Performing Organization Address [facility] de Phone Number [id number] [place] [place] [address] * PSA screen (03/10/2024 10:00 AM CDT) PSA-Total 0.25 ng/mL Comment: Interpretive Data AGE SEX REFERENCE INTERVAL 0 minutes-150 years Female None 0 minutes-49 years Male None 50-59 years Male 0-3.90 60-69 years Male 0-5.40 70-79 years Male 0-6.20 80-150 years Male 0-6.20 The Kaela PSA Total assay procedure was used. Results from different manufacturers or methods may not be comparable. Serial testing should be performed using the same method. Current interpretive data last revised 22. Blood 03/10/2024 10:0 0 AM CDT 03/10/2024 5:39 PM CDT Aurelia Santiago NP LAB BLOOD ORDERABLES Final Result Performing Organization Address [facility] Co de Phone Number [email or web address] [place] [employer] [place] [address] from Last 3 Months or Most Recently Relevant to Health Maintenance Care Teams Player Development Executive Relationship Specialty Start Date End Date Aurelia Santiago NP [address] [address] PCP - General Family Medicine 09/11/22
--- NOTE | 2025-11-23 02:55 | ED_ITS ---
HPI - Nausea/Vomiting/Diarrhea General Chief complaint: Nausea/Vomiting/Diarrhea Stated complaint: n/v, low bg Time Seen by Provider: 11/23/25 02:42 History of Present Illness HPI Narrative: 50-year-old male with a past medical history including hypertension, hyperlipidemia, insulin-dependent type 2 diabetes. Patient presents to the emergency department 4 days of nausea, vomiting, liquid diarrhea. States he has not been feeling well for last few days. Not really eating and drinking as he has been vomiting. No fever chills. No recent medication changes. No recent hospitalizations or any sick contacts. States his blood glucose has been all over the place recently secondary to the decreased oral intake. Has been not checking his sugars at home but is taking his insulin. no traumatic injuries. 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 Related Data Home Medications ?Medication ?Instructions ?Recorded ?Confirmed ?Last Taken ?Type dapagliflozin propanediol 10 mg 10 mg PO DAILY 3 10/06/23 Unknown History tablet (Farxiga) metformin 1,000 mg tablet 1,000 mg PO BID 10/06/2310/1810/05/23 History Allergies Allergy/AdvReac Type Severity Reaction Status Date / Time No Known Allergies Allergy Verified 11/23/25 02:31 Review of Systems 2 Review of Systems: As reviewed above in HPI All systems reviewed & are unremarkable except as noted in HPI and below PMFSH Past Medical History Medical History Noncompliance Nicotine abuse Arthritis Anxiety Dyslipidemia Hypertension Diabetes mellitus Family History Family History Father Diabetes mellitus High cholesterol Mother Diabetes mellitus High cholesterol Grandparent Diabetes mellitus Cerebrovascular accident High cholesterol Social History Social History Smoking packs per day: 2 Smoking cigarettes per day: 40.0 Years smoked: 33 Smoking pack-years: 66.00 Smoking status: Current every day smoker Tobacco type: cigarettes Alcohol intake: former Substance use: never Lack of Transportation: No Lack of Food: Never True Current Housing: I Have Housing Concerned About Future Housing: No Difficulty Paying Gas/Electric Bills: No Difficulty Paying for Meds: YES Currently Unemployed: No Education: Associate Degree Difficulty w/ Childcare or Family Care: No Spiritual care concerns: No Exam 2 Narrative: GENERAL: [Well-appearing, well-nourished, and in no acute distress.] HEAD: [Normocephalic, atraumatic.] EYES: [PERRLA and EOMI.] ENT: Nares clear, no rhinorrhea or epistaxis. Mucous membranes moist. NECK: Supple. CHEST: [Clear to auscultation. No respiratory distress.] HEART: [Regular rate and rhythm]. No murmur heard. [Normal peripheral pulses.] ABDOMEN: soft and nondistended, tender to palpation in the epigastrium, no rebound or guarding. No lower quadrant tenderness or peritonitis. EXTREMITIES: Normal range of motion. [No edema.] SKIN: Warm, dry, no rash. NEURO: [No focal deficits]. Alert and oriented [x3.] PSYCH: [Normal mood and affect.] Course Vital Signs Vital signs: Vital Signs Temperature 36.4 C 11/23/25 02:27 Pulse Rate 90 11/23/25 02:27 Respiratory Rate 18 11/23/25 02:27 Blood Pressure 191/109 H 11/23/25 02:27 Pulse Oximetry 99 11/23/25 02:27 Oxygen Delivery Room Air 11/23/25 02:27 Temperature 36.4 C 11/23/25 02:27 Pulse Rate 67 11/23/25 05:01 Respiratory Rate 20 11/23/25 05:01 Blood Pressure 167/102 H 11/23/25 05:01 Pulse Oximetry 99 11/23/25 05:01 Oxygen Delivery Room Air 11/23/25 02:27 [facility] MDM Narrative Medical decision making narrative: 50-year-old male with a past medical history including hypertension, hyperlipidemia, insulin-dependent type 2 diabetes. Patient presents to the emergency department 4 days of nausea, vomiting, liquid diarrhea. States he has not been feeling well for last few days. Not really eating and drinking as he has been vomiting. No fever chills. No recent medication changes. No recent hospitalizations or any sick contacts. States his blood glucose has been all over the place recently secondary to the decreased oral intake. Has been not checking his sugars at home but is taking his insulin. no traumatic injuries. 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 Patient's examination is showing some epigastric tenderness with palpation but no signs of peritonitis. He is hypertensive likely combination of chronic hypertension and acute pain. No tachycardia, tachypnea. Does not appear dehydrated. Symptoms could be gastritis, gastroenteritis, intra-abdominal infection, pancreatitis, less likely kidney stone or viscus injury. Laboratory studies obtained, CT scan with contrast ordered. His given Dilaudid fluid Zofran and re-evaluated. CT scan report independently reviewed and also interpreted by radiology. Patient has normal gallbladder and bile ducts, no evidence of obstruction, appendicitis or diverticulitis. Small nonobstructing renal calculi in left kidney, otherwise unremarkable kidneys. Fatty liver. incidentally found noncalcified pleural-based nodules with no recommendation for follow-up. Patient's lab show leukocytosis of 15, hypokalemia 2.8 likely from GI losses. He was given oral and IV potassium replenishment. EKG is unremarkable. Blood pressure came down with pain control. Symptoms under control at this time, no emergent findings or need for hospitalization at this juncture. Likely gastroenteritis causing patient's symptomatology and will be discharged with combination of symptom controlling medications including Bentyl, Zofran, loperamide as well as strict return precautions. Patient verbalized understanding and safe for discharge. Differential Diagnosis Differential Diagnosis: Symptoms could be gastritis, gastroenteritis, intra-abdominal infection, pancreatitis, less likely kidney stone or viscus injury. Lab Data MDM Lab Attestation statement: I personally reviewed the patient's lab results. 11/23/25 02:54 11/23/25 02:54 Labs: Lab Results 11/23/25 11/23/25 11/23/25 Range/Units 02:43 02:54 04:23 WBC 15.0 H (4.5-10.0) K/mm3 RBC 5.28 (4.6-6.20) M/mm3 Hgb 16.2 (14.0-18.0) g/dL Hct 44.4 (42.0-52.0) % MCV 84.1 (80-100) fl MCH 30.7 (26-34) pg MCHC 36.5 H (32-36) g/dl RDW 14.6 H (11.5-14.5) % Plt Count 344 (150-375) k/mm3 MPV 9.2 (7.4-10.4) fl Immature Gran % (Auto) 0.3 (0-0.5) % Neut % (Auto) 50.3 (45.5-73.1) % Lymph % (Auto) 37.1 (18.3-44.2) % Boundary % (Auto) 10.3 H (2.6-8.5) % Eos % (Auto) 1.5 (0-4.4) % Baso % (Auto) 0.5 (0.2-1.2) % Lymph # (Auto) 5.57 H (0.9-3.2) K/mm3 Boundary # (Auto) 1.6 H (0.1-0.6) K/mm3 Eos # (Auto) 0.2 (0-0.3) K/mm3 Baso # (Auto) 0.1 (0.0-0.1) K/mm3 Abs Immat Gran (auto) 0.05 H (0.00-0.031) K/mm3 Absolute Neuts (auto) 7.5 H (1.3-6.7) K/mm3 Absolute Nucleated RBC 0.000 (0.0-0.012) K/mm3 Nucleated RBC % 0.0 (0.0-0.2) % Sodium 137 (137-145) mmol/L Potassium 2.8 L* (3.4-5.0) mmol/L Chloride 104 (98-107) mmol/L Carbon Dioxide 25 (22-30) mmol/L Anion Gap 8 (4-12) mmol/L BUN 6 L D (9-20) mg/dL Creatinine 0.88 (0.7-1.3) mg/dL Estim Creat Clear Calc 91 ml/min Estimated GFR > 60 (59 - ) Glucose 193 H (65-110) mg/dL POC Capillary Glucose 234 H (65-105) mg/dl Calcium 9.4 (8.4-10.2) mg/dL Total Bilirubin 0.8 (0.2-1.3) mg/dL AST 33 (17-59) U/L ALT 22 (6-50) U/L Alkaline Phosphatase 98 (38-126) U/L Total Protein 8.7 H (6.3-8.2) g/dL Albumin 4.3 (3.5-5.1) g/dL Lipase 41 (23-300) U/L Urine Color Yellow (Yellow) Urine Appearance Clear (Clear) Urine pH 6.5 (5.0-9.0) Ur Specific [place] 1.009 (1.001-1.035) Urine Protein 2+ H (Negative) mg/dL Urine Glucose (UA) Negative (Negative) mg/dL Urine Ketones Negative (Negative) mg/dL Ur Blood (Man) Negative (Negative) Urine Nitrate Negative (Negative) Urine Bilirubin Negative (Negative) Urine Urobilinogen 1.0 (<2.0) mg/dL Leukocyte Esterase Rfl Negative (Negative) PORTILLO/UL Urine RBC 0-2 (0-2) /hpf Urine WBC 0-5 (0-3) /hpf Ur Squamous Epith Cells None seen (Few) /hpf Urine Bacteria None seen /hpf Urine Casts 0-2 Influenza A (RT-PCR) Negative (Negative) Influenza B (RT-PCR) Negative (Negative) RSV (RT-PCR) Negative (Negative) SARS-CoV-2 RNA (RT-PCR) Negative (Negative) Imaging Data Attestation: I personally reviewed and interpreted this imaging study as follows: Radiologist's impression: Patient has normal gallbladder and bile ducts, no evidence of obstruction, appendicitis or diverticulitis. Small nonobstructing renal calculi in left kidney, otherwise unremarkable kidneys. Fatty liver. incidentally found noncalcified pleural-based nodules with no recommendation for follow-up. Discharge Plan Discharge Clinical Impression: Gastroenteritis, Acute hypokalemia Patient Disposition: Home Condition: Stable Instructions: Antibiotic Form, Gastroenteritis (ED) Additional Instructions: CT scan unremarkable, symptoms and labs consistent with gastroenteritis or stomach flu. Laboratory studies show some low potassium from the vomiting and diarrhea but we replaced this with IV and oral potassium here. We will send you home with medications for symptom control while your body takes care of the infection on its own. We will send prescription medications for Bentyl, Zofran, loperamide. Return with any emergent concerns such as intractable symptoms, worsening pain, severe dehydration, inability urinate, losing consciousness or any other issues otherwise follow-up with your primary care provider and continue your home medications and insulin. CT scan shows several incidental findings likely unrelated to presentation today. Small nonobstructing left- sided kidney stone, some fatty infiltration of the liver as well as 2 Pleural based nodules in the right lower lung which radiologist mentioned does not usually require follow-up based on the appearance but just for you to be aware of. Follow up with your PCP regarding ER visit today. Patient Language: Telugu Prescriptions: New loperamide [Anti-Diarrheal (loperamide)] 2 mg capsule 2 mg PO Q6H PRN (Reason: loose stool) Qty: 14 0RF dicyclomine 20 mg tablet 20 mg PO TID PRN (Reason: abdominal pain) Qty: 20 0RF ondansetron 4 mg tablet,disintegrating 4 mg PO Q8H PRN (Reason: nausea and vomiting) Qty: 20 0RF No Action metformin 1,000 mg tablet 1,000 mg PO BID Farxiga 10 mg tablet 10 mg PO DAILY Patient Comments: New prescription; intended to start s/p discharge lisinopril 10 mg Tablet 10 mg PO DAILY Qty: 30 0RF rosuvastatin [Crestor] 5 mg Tablet 5 mg PO DAILY Qty: 30 0RF insulin detemir U-100 100 unit/mL (3 mL) insulin pen 10 unit subcut HS Qty: 15 1RF (DME) pen needle, diabetic [BD Ultra-Fine Micro Pen Needle] 32 gauge x 1/4 needle Qty: 1 1RF Rx Instructions: May substitute to meet patient needs. Use As Directed Follow-up/Referrals: PHYSICIAN NOT ON STAFF,NONSTAFF [Primary Care Provider] Time of Disposition: 05:21
[2025-11-23] MEDS: LACTATED RINGERS 1,000 ML 999 ML IV CONT (03:06)
[2025-11-23] MEDS: ONDANSETRON INJ 4 MG/2 ML VIAL IV PUSH (03:06)
[2025-11-23] MEDS: HYDROmorphone HCL INJ (*CRX) 1 MG/ML SYR IV PUSH (03:07)
[2025-11-23 03:08] LABS: Hematocrit 44.4 % (42.0-52.0); Hemoglobin 16.2 g/dL (14.0-18.0); Immature Granulocyte Percent A 0.3 % (0-0.5); Lymphocytes Absolute Auto 5.57 K/mm3 (0.9-3.2); Mean Corpuscular HGB Conc 36.5 g/dl (32-36); Mean Corpuscular Hemoglobin 30.7 pg (26-34); Mean Corpuscular Volume 84.1 fl (80-100); Nucleated Red Blood Cells Absolute Auto 0.000 K/mm3 (0.0-0.012); Nucleated Red Blood Cells Perc 0.0 % (0.0-0.2); Platelet Count Result 344 k/mm3 (150-375); Red Blood Count 5.28 M/mm3 (4.6-6.20); White Blood Count 15.0 K/mm3 (4.5-10.0)
[2025-11-23 03:13] LABS: Add Urine Microscopic? YES; Appearance Urine Clear (Clear); Glucose Urine UA Negative (Negative); Leukocyte Esterase Ur Negative LEU/UL (Negative); Nitrate Urine Negative (Negative); Non Pathogenic Casts 0-2; Specific Grav Ur 1.009 (1.001-1.035)
[2025-11-23 03:21] LABS: Alanine Aminotransferase 22 U/L (6-50); Albumin Level 4.3 g/dL (3.5-5.1); Alkaline Phosphatase 98 U/L (38-126); Anion Gap 8 mmol/L (4-12); Aspartate Amino Transferase 33 U/L (17-59); Bilirubin,Total 0.8 mg/dL (0.2-1.3); Blood Urea Nitrogen 6 mg/dL (9-20); Calcium 9.4 mg/dL (8.4-10.2); Carbon Dioxide 25 mmol/L (22-30); Chloride 104 mmol/L (98-107); Estimated CRCL calculation 91 ml/min; Estimated Glomerular Filt Rate > 60; Glucose 193 mg/dL (65-110); Lipase 41 U/L (23-300); Potassium 2.8 mmol/L (3.4-5.0); Sodium 137 mmol/L (137-145); Total Protein 8.7 g/dL (6.3-8.2)
--- NOTE | 2025-11-23 03:42 | ECG_ITS ---
Test Date: 2025-11-23 04:47:01 Measurements Intervals [place] Rate: 59 P: 62 MA: 179 QRS: 58 QRSD: 105 T: 74 QT: 446 QTc: 444 Interpretive Statements SINUS BRADYCARDIA MINIMAL Q WAVES- INF/LAT LEADS BASELINE ARTIFACT- I, II, III, AVR, AVL BORDERLINE ECG No previous ECG available for comparison Electronically Signed On 11-23-2025 08:36:22 NETWORK CONTROL SUPERVISOR by Aaron Holland D.O.
[2025-11-23] MEDS: POTASSIUM CHLORIDE 20 MEQ ER TABLET 40 MEQ PO ×2 (04:02→05:35)
[2025-11-23] MEDS: KCL 20 MEQ/SW 100 ML 100 ML 50 MEQ IVPB (04:31)
[2025-11-23 05:01] VITALS: BP 167/102; PULSE 67; RESP 20; O2SAT 99
[2025-11-23 05:19] LABS: Influenza A QL RT-PCR Negative (Negative); Influenza B QL RT-PCR Negative (Negative); RSV RNA, RT-PCR Negative (Negative); SARS-CoV-2 RNA PCR Negative (Negative)
== END 2025-11-23 05:41 | disposition home or self-care (01) ==
PROVIDERS: Emergency Provider Student in an Organized Health Care Education/Training Program
DX: K52.9 Noninfective gastroenteritis and colitis, unspecified (principal); E87.6 Hypokalemia; R91.8 Other nonspecific abnormal finding of lung field; Z20.822 Contact with and (suspected) exposure to COVID-19; I10 Essential (primary) hypertension; E78.5 Hyperlipidemia, unspecified; E11.9 Type 2 diabetes mellitus without complications; M19.90 Unspecified osteoarthritis, unspecified site; F17.210 Nicotine dependence, cigarettes, uncomplicated; Z85.05 Personal history of malignant neoplasm of liver; Z85.028 Personal history of other malignant neoplasm of stomach; Z79.84 Long term (current) use of oral hypoglycemic drugs; Z79.4 Long term (current) use of insulin; Z79.899 Other long term (current) drug therapy; N20.0 Calculus of kidney; J43.9 Emphysema, unspecified; R00.1 Bradycardia, unspecified
CPT/HCPCS: 36415; 74177; 80053; 81001; 82948; 83690; 85025; 87637; 93005; 96361; 96365; 96366; 96375; 99284; A9270; J1171; J2405; J3480; J7120; Q9967